=== PATIENT | female | born 1945 | race Caucasian/White ===

== ENCOUNTER → 2016-08-08 | Day surgery (SDC) | payer OTHER ==
[~2016-08-08] MED LIST: THROMBIN (RECOMBINANT) 5,000 UNIT VIAL TP ONE
--- NOTE | 2016-08-08 09:57 | MA ---
Diagnostic Digital Mammogram Right Breast Reason for examination: Follow up stereotactic right breast biopsy. Technique: Craniocaudal and true lateral views were obtained. Findings: The Suros marker is deployed at the biopsy site in the lower central right breast. The tar geted microcalcifications were noted removed.. Impression: The Suros marker is deployed at the biopsy site. We will await pathologic results.
== END | disposition home or self-care (01) ==
LOC: FIMAGING 08:26
PROVIDERS: ATTEND Family Medicine
PROC: 0HBT3ZX Excision of Right Breast, Percutaneous Approach, Diagnostic (ICD-10-PCS; principal; 2016-08-08)
PROC: BH00ZZZ Plain Radiography of Right Breast (ICD-10-PCS; 2016-08-08)
DX: D24.1 Benign neoplasm of right breast (principal); N60.11 Diffuse cystic mastopathy of right breast; N60.21 Fibroadenosis of right breast; R92.0 Mammographic microcalcification found on diagnostic imaging of breast; Z85.3 Personal history of malignant neoplasm of breast; Z80.3 Family history of malignant neoplasm of breast
CPT/HCPCS: G0206

== ENCOUNTER → 2016-12-27 | Outpatient (CLI) | payer OTHER | LOC: BRMIMAGING 10:53 | PROVIDERS: ATTEND Family Medicine | DX: Z12.31 Encounter for screening mammogram for malignant neoplasm of breast (principal); Z85.3 Personal history of malignant neoplasm of breast | CPT/HCPCS: G0202 ==

== ENCOUNTER → 2017-12-28 | Outpatient (CLI) | payer OTHER | LOC: BRMIMAGING 10:14 | PROVIDERS: ATTEND Family Medicine | DX: Z12.31 Encounter for screening mammogram for malignant neoplasm of breast (principal); Z85.3 Personal history of malignant neoplasm of breast; Z80.3 Family history of malignant neoplasm of breast ==